=== PATIENT | female | born 1950 | race African-American/Black ===

== ENCOUNTER 2022-04-06 15:13 | Observation (INO) | payer MEDICARE, MEDICAID ==
[2022-04-06 17:05] LABS: #Lymphocytes 0.7 thou/uL (1.20-3.40); #Monocytes 0.2 thou/uL (0.11-0.59); #Neutrophils 1.6 thou/uL (1.40-6.50); %Basophils 0.5 % (0.0-1.0); %Lymphocytes 27.2 % (21.0-51.0); %Monocytes 6.5 % (0.0-10.0); %Neutrophils 64.9 % (42.0-75.0); Hemoglobin 13.2 g/dL (12.0-16.0); Mean Corpuscular HGB CONC 30.3 g/dL (32.0-36.0); Mean Corpuscular Hemoglobin 30.6 pg (27.0-31.0); Mean Platelet Volume 8.4 fL (7.4-10.4); Platelet Count 204 thou/uL (130-400); RBC Distribution Width 16.1 % (11.5-14.5); Red Blood Cell (RBC) Count 4.32 mill/uL (4.20-5.40); White Blood Cell (WBC) Count 2.5 thou/uL (4.8-10.8)
[2022-04-06 17:23] LABS: ALT (SGPT) Less than 7 U/L (8-55); AST (SGOT) 12 U/L (5-34); Albumin 3.3 g/dL (3.4-4.8); Alkaline Phosphatase 77 U/L (40-110); Anion Gap 14 mmol/L (10-20); BUN (Urea Nitrogen) 12 mg/dL (9.8-20.1); Bilirubin, Total 0.8 mg/dL (0.2-1.2); CK (CPK) 60 U/L (29-168); Calc. Creatinine Clearance 0 mL/min (70-130); Calcium 8.9 mg/dL (7.8-10.44); Carbon Dioxide 27 mmol/L (23-31); Chloride 103 mmol/L (98-107); Globulin 4.7 g/dL (2.4-3.5); Glucose 118 mg/dL (83-110); Potassium 4.5 mmol/L (3.5-5.1); Sodium 139 mmol/L (136-145)
[2022-04-06] MEDS ORDERED: Nitroglycerin 2% Ointment 1 INCH/1 GM Packet ONE (18:03)
[2022-04-06] MEDS ORDERED: Aspirin Chewable 81 MG TAB ONE (18:03)
[2022-04-06] MEDS ORDERED: Ondansetron PF 4 MG/2 ML Vial IVP PRN (18:43)
[2022-04-06] MEDS ORDERED: Senokot S 8.6-50 MG TAB PO PRN (18:43)
[2022-04-06] MEDS ORDERED: Bisacodyl 5 MG TAB PO PRN (18:43)
[2022-04-06] MEDS ORDERED: hydrALAZINE 20 MG/ML VIAL SLOW IVP PRN (18:55)
[2022-04-06] MEDS ORDERED: Acetaminophen 325 MG TAB PO PRN (18:58)
[2022-04-06] MEDS ORDERED: Melatonin 3 MG TAB PO PRN (19:00)
[2022-04-06] MEDS ORDERED: traMADol HCl 50 MG TAB PO PRN (19:00)
[2022-04-06] MEDS: Enoxaparin Sodium 40 MG/0.4 ML SYRINGE SC SCH (21:50)
[2022-04-06] MEDS: Sodium Chloride 0.9% 1,000 ML IV SCH (21:50)
[2022-04-06] MEDS: ZINC OXIDE 20% TOP SCH (21:51)
[2022-04-06] MEDS: NYSTATIN TOP SCH (21:51)
[2022-04-06 23:19] LABS: Troponin I 0.055 ng/mL (< 0.028)
[2022-04-06 23:52] VITALS: BMI 61.5
[2022-04-06] MEDS: Nystatin Powder 15 GM BOT TOP SCH (23:54)
[2022-04-07 05:13] LABS: #Lymphocytes 1.2 thou/uL (1.20-3.40); #Monocytes 0.3 thou/uL (0.11-0.59); %Basophils 0.3 % (0.0-1.0); %Eosinophils 1.7 % (0.0-10.0); %Lymphocytes 47.9 % (21.0-51.0); %Monocytes 10.6 % (0.0-10.0); %Neutrophils 39.5 % (42.0-75.0); Hemoglobin 12.5 g/dL (12.0-16.0); Mean Corpuscular HGB CONC 31.3 g/dL (32.0-36.0); Mean Corpuscular Volume 98.9 fL (78.0-98.0); Mean Platelet Volume 8.3 fL (7.4-10.4); Platelet Count 197 thou/uL (130-400); RBC Distribution Width 16.1 % (11.5-14.5); Red Blood Cell (RBC) Count 4.03 mill/uL (4.20-5.40); White Blood Cell (WBC) Count 2.6 thou/uL (4.8-10.8)
[2022-04-07 05:18] LABS: Hemoglobin A1c 5.6 % (4.0-6.0)
[2022-04-07 05:34] LABS: ALT (SGPT) Less than 7 U/L (8-55); AST (SGOT) 13 U/L (5-34); Albumin 2.9 g/dL (3.4-4.8); Alkaline Phosphatase 66 U/L (40-110); Anion Gap 11 mmol/L (10-20); BUN (Urea Nitrogen) 13 mg/dL (9.8-20.1); Bilirubin, Total 0.7 mg/dL (0.2-1.2); Calc. Creatinine Clearance 151 mL/min (70-130); Calcium 8.6 mg/dL (7.8-10.44); Carbon Dioxide 27 mmol/L (23-31); Cardiac Risk 2.5 (Less than 4.5); Chloride 103 mmol/L (98-107); Cholesterol 102 mg/dl (< 200 Desired); Globulin 4.7 g/dL (2.4-3.5); Glucose 104 mg/dL (83-110); HDL Cholesterol 41 mg/dL (>60 Neg Risk); LDL Cholesterol, Calculated 40 mg/dL; Potassium 3.6 mmol/L (3.5-5.1); Protein, Total 7.6 g/dL (5.8-8.1); Sodium 137 mmol/L (136-145); Triglycerides 103 mg/dL (Less than 150)
[2022-04-07] MEDS: Sodium Chloride 0.9% 1,000 ML IV SCH (09:04)
[2022-04-07] MEDS: Nystatin Powder 15 GM BOT TOP SCH ×3 (09:05→18:21)
[2022-04-07] MEDS: ZINC OXIDE 20% TOP SCH ×3 (09:06→18:21)
[2022-04-07] MEDS: NYSTATIN TOP SCH ×3 (09:06→18:21)
[2022-04-07 11:46] LABS: SARS-CoV-2 PCR by NAA Not Detected (NotDetected)
[2022-04-07] MEDS ORDERED: Folic Acid 1 MG TAB PO SCH (13:15)
[2022-04-07 13:33] LABS: Bilirubin Negative (Negative); Blood, Urine Negative (Negative); Clarity Turbid (Clear); Glucose, Urine (Dipstick) Normal (Negative); Ketone, Urine Negative (Negative); Leukocyte 250 Leu/uL (Negative); Nitrite Negative (Negative); Protein, Urine (Dipstick) 10 mg/dL (Neg-Trace); Specific Gravity, Urine 1.013 (1.002-1.036); Urobilinogen 3 mg/dL (Less than 2); pH, Urine 5.5 (5.0-9.0)
[2022-04-07] MEDS ORDERED: Amlodipine 5 MG TAB PO SCH (14:30)
[2022-04-07 15:36] LABS: Bacteria/HPF 3+ HPF (None Seen); RBC/HPF 0-3 HPF (0-3)
[2022-04-07] MEDS: Enoxaparin Sodium 40 MG/0.4 ML SYRINGE SC SCH (19:17)
[2022-04-07 20:23] VITALS: BP 153/103; TEMP 98
[2022-04-07] MEDS ORDERED: Enoxaparin Sodium 40 MG/0.4 ML SYRINGE SC SCH (21:00)
[2022-04-08] MEDS ORDERED: Folic Acid 1 MG TAB PO SCH (09:00)
[2022-04-08] MEDS ORDERED: Amlodipine 5 MG TAB PO SCH (09:00)
== END 2022-04-07 20:20 ==
LOC: ERS 15:13 → 2NO 18:09
PROVIDERS: ADMIT Emergency Medicine; ATTEND Emergency Medicine
DX: R77.8 Other specified abnormalities of plasma proteins (principal); I10 Essential (primary) hypertension; R53.81 Other malaise; D70.9 Neutropenia, unspecified; E53.8 Deficiency of other specified B group vitamins; R29.6 Repeated falls; S30.810A Abrasion of lower back and pelvis, initial encounter; B37.89 Other sites of candidiasis; M17.12 Unilateral primary osteoarthritis, left knee; M16.0 Bilateral primary osteoarthritis of hip; E03.9 Hypothyroidism, unspecified; E66.01 Morbid (severe) obesity due to excess calories; Z68.44 Body mass index [BMI] 60.0-69.9, adult; Z74.01 Bed confinement status; Z20.822 Contact with and (suspected) exposure to COVID-19; X58.XXXA Exposure to other specified factors, initial encounter
CPT/HCPCS: 71045; 72170; 73502; 73552; 80053; 80061; 81001; 82550; 82553; 82607; 82746; 83036; 83880; 84484 ×2; 85025; 93005; 96372; 97139 ×3; 97535; 99285; G0378 ×3; U0003; U0005; 36415; 84443; J1650; J7050